=== PATIENT | male | born 2000 | race Caucasian/White ===

== ENCOUNTER 2020-10-27 14:47 | Emergency (ER) | payer OTHER ==
[~2020-10-27] VITALS: Ht 175.3 cm; Wt 67.1 kg
[2020-10-27 14:54] VITALS: BP 102/46
[2020-10-27] MEDS ORDERED: LIDOCAINE-MPF 1%, 5ML ONE ×2 (15:17→15:49)
[2020-10-27] MEDS ORDERED: DIPH,PERTUSS(ACELL),TET VAC/PF 0.5 ML IM-VACC ONE ×2 (15:23→15:30)
[2020-10-27] MEDS ORDERED: CEPHALEXIN 500 MG CAPSULE ONE (15:23)
--- NOTE | 2020-10-27 15:25 | NUR ---
PROVIDER AT BS FOR PT HISTORY AND ASSESSMENT. PT MEDICATED PER MAR. PT RESTING COMFORTABLY WITH NADN.
[2020-10-27] MEDS ORDERED: LIDOCAINE-MPF 1%, 5ML INFIL ONE ×2 (15:30→16:00)
[2020-10-27] MEDS ORDERED: CEPHALEXIN 500 MG CAPSULE PO ONE (15:30)
[2020-10-27] MEDS ORDERED: BACITRACIN ZINC OINT 500U/GM, 0.9 GM ONE (16:05)
[2020-10-27] MEDS ORDERED: NEOSPORIN OINT. PKT 1 PACKET ONE (16:26)
== END 2020-10-27 16:47 | disposition home or self-care (01) ==
LOC: ED 16:41
DX: S61.032A Puncture wound without foreign body of left thumb without damage to nail, initial encounter (principal); S60.352A Superficial foreign body of left thumb, initial encounter; X58.XXXA Exposure to other specified factors, initial encounter; Y93.89 Activity, other specified; Y92.69 Other specified industrial and construction area as the place of occurrence of the external cause; Y99.0 Civilian activity done for income or pay
CPT/HCPCS: 11730; 90471; 90715; 99284